=== PATIENT | female | born 1960 | race Caucasian/White ===

== ENCOUNTER 2020-05-08 21:09 | Emergency (ER) | payer SELFPAY ==
--- NOTE | 2020-05-08 21:35 | RAD ---
XR Knee Rt 4 View STANDARD HISTORY: Injury, right knee pain FINDINGS: No fracture or dislocation is identified.
== END 2020-05-08 22:50 | disposition home or self-care (01) ==
LOC: ERS 21:09
DX: S80.01XA Contusion of right knee, initial encounter (principal); W01.0XXA Fall on same level from slipping, tripping and stumbling without subsequent striking against object, initial encounter